=== PATIENT | female | born 1945 | race Caucasian/White ===

== ENCOUNTER 2017-11-21 08:05 | Day surgery (SDC) | payer OTHER, MEDICARE ==
[~2017-11-21] VITALS: Ht 162.6 cm; Wt 65.3 kg
[~2017-11-21 08:05] MED LIST: ALPR1TAB7 PO; ASPI81TA40 PO; CETI10CA5 PO; FURO40TA7 PO; LORA1TAB3 PO; PANT40TA25 PO; POTA10CA44 PO; RANO500T2 PO; RITUXAN IV; SIMV20TA6 PO; SODIUM CHLORIDE 0.9% 1000ML 1,000 ML IV ONE; levothyroxin PO; miralax PO
[2017-11-21 09:00] VITALS: BP 149/75
[2017-11-21] MEDS ORDERED: PROPOFOL 10 MG/ML 20ML VIAL IV ONE ×2 (09:51)
[2017-11-21 10:15] VITALS: BP 120/38
== END 2017-11-21 11:10 | disposition home or self-care (01) ==
LOC: ENDO 08:05 → DAH 08:05 → ENDO 11:10
PROVIDERS: ATTEND Internal Medicine
DX: D12.4 Benign neoplasm of descending colon (principal); D12.5 Benign neoplasm of sigmoid colon; K63.89 Other specified diseases of intestine; K62.89 Other specified diseases of anus and rectum; E03.9 Hypothyroidism, unspecified; E11.9 Type 2 diabetes mellitus without complications; K29.50 Unspecified chronic gastritis without bleeding; K31.89 Other diseases of stomach and duodenum; E78.5 Hyperlipidemia, unspecified; C18.7 Malignant neoplasm of sigmoid colon; I10 Essential (primary) hypertension; D64.9 Anemia, unspecified; Z79.82 Long term (current) use of aspirin; Z79.899 Other long term (current) drug therapy; Z90.710 Acquired absence of both cervix and uterus; Z98.890 Other specified postprocedural states; Z96.659 Presence of unspecified artificial knee joint; Z96.643 Presence of artificial hip joint, bilateral; Z88.0 Allergy status to penicillin; Z88.8 Allergy status to other drugs, medicaments and biological substances; Z85.038 Personal history of other malignant neoplasm of large intestine
CPT/HCPCS: 43239; 45380; 45385; 88305; 88312; 93005; A4606; J2704 ×2; J7030

== ENCOUNTER → 2018-03-30 | Outpatient (CLI) | payer OTHER, MEDICARE ==
[~2018-03-30] MED LIST changes: -SODIUM CHLORIDE 0.9% 1000ML 1,000 ML IV ONE
== END | disposition home or self-care (01) ==
LOC: RAH 07:53
PROVIDERS: ATTEND Family Medicine
DX: M47.892 Other spondylosis, cervical region (principal); M47.896 Other spondylosis, lumbar region; M48.061 Spinal stenosis, lumbar region without neurogenic claudication; M48.02 Spinal stenosis, cervical region; M50.30 Other cervical disc degeneration, unspecified cervical region; M51.36 Other intervertebral disc degeneration, lumbar region
CPT/HCPCS: 72141; 72148

== ENCOUNTER → 2018-11-28 | Outpatient (CLI) | payer OTHER, MEDICARE | END | disposition home or self-care (01) | LOC: SHCH 12:49 | PROVIDERS: ATTEND Internal Medicine Cardiovascular Disease | DX: I65.23 Occlusion and stenosis of bilateral carotid arteries (principal); I11.9 Hypertensive heart disease without heart failure; I25.5 Ischemic cardiomyopathy | CPT/HCPCS: 93306; 93880 ==

== ENCOUNTER 2019-08-21 06:48 | Day surgery (SDC) | payer OTHER, MEDICARE ==
[~2019-08-21] VITALS: Ht 162.6 cm; Wt 63.5 kg
[~2019-08-21 06:48] MED LIST changes: +BISACODYL; +CA C1TAB95 PO; +DICY20TA11 PO; +ERGO500014 PO; +ESOM40CA54 PO; +FLUT1AER IH; +ISOS30TA6 PO; +ONDA4TAB4 PO; -PANT40TA25 PO; +SIMV-43 PO; -SIMV20TA6 PO; +SODIUM CHLORIDE 0.9% 1000ML 1,000 ML IV ONE; +SUCR1TAB2 PO; -miralax PO
[2019-08-21 07:58] VITALS: BP 132/69
[2019-08-21] MEDS ORDERED: KCL10IV IV (08:38)
[2019-08-21] MEDS ORDERED: DICY20TA11 PO (08:38)
[2019-08-21] MEDS ORDERED: FLUT1AER IH (08:38)
[2019-08-21] MEDS ORDERED: ISOS30TA11 PO (08:38)
[2019-08-21] MEDS ORDERED: SIMV40TA59 PO (08:38)
[2019-08-21] MEDS ORDERED: ONDA22I IM (08:38)
[2019-08-21] MEDS ORDERED: ALPR1TAB7 PO (08:38)
[2019-08-21] MEDS ORDERED: LEVO100T12 PO (08:38)
[2019-08-21] MEDS ORDERED: AEC81 PO (08:38)
[2019-08-21] MEDS ORDERED: SUCR1TAB2 PO (08:38)
[2019-08-21] MEDS ORDERED: RANO500T2 PO (08:38)
[2019-08-21] MEDS ORDERED: RITU1010I INJ (08:38)
[2019-08-21] MEDS ORDERED: FURO40TA7 PO (08:38)
[2019-08-21] MEDS ORDERED: CETI5TAB12 PO (08:38)
[2019-08-21] MEDS ORDERED: ESOM40CA54 PO (08:38)
[2019-08-21] MEDS ORDERED: VIT D (08:38)
[2019-08-21] MEDS ORDERED: BISA5TAB12 PO (08:38)
[2019-08-21] MEDS ORDERED: CALC-909 PO (08:38)
[2019-08-21] MEDS ORDERED: LORA2ORA5 PO (08:38)
[2019-08-21] MEDS ORDERED: PROPOFOL 10 MG/ML 20ML VIAL IV ONE (09:03)
[2019-08-21 09:04] VITALS: BP 112/55
[2019-08-21 09:12] VITALS: BP 131/72
[2019-08-21 09:17] VITALS: BP 145/70
[2019-08-21 09:22] VITALS: BP 133/71
[2019-08-21 09:27] VITALS: BP 125/66
[2019-12-02] MEDS ORDERED: [UNRECOGNIZED DRUG - CODE] PO (04:16)
[2019-12-02] MEDS ORDERED: FOLI0.8T PO (04:16)
[2019-12-02] MEDS ORDERED: ALBU8.5H8 IH (04:16)
[2019-12-02] MEDS ORDERED: NTP TP (04:16)
[2019-12-02] MEDS ORDERED: LEVO100T12 PO (04:16)
[2019-12-02] MEDS ORDERED: HYDR-4068 PO (04:16)
[2019-12-02] MEDS ORDERED: LORA-192 PO (04:16)
[2019-12-02] MEDS ORDERED: BISA5TAB12 PO (04:16)
[2019-12-09] MEDS ORDERED: FURO40TA7 PO (14:22)
== END 2019-08-21 09:40 | disposition home or self-care (01) ==
LOC: DAH 06:48 → ENDO 06:48 → MERGE 06:48 → ENDO 09:40
PROVIDERS: ATTEND Internal Medicine Gastroenterology
DX: R10.13 Epigastric pain (principal); K29.50 Unspecified chronic gastritis without bleeding; K21.9 Gastro-esophageal reflux disease without esophagitis; M06.9 Rheumatoid arthritis, unspecified; E03.9 Hypothyroidism, unspecified; I10 Essential (primary) hypertension; E11.9 Type 2 diabetes mellitus without complications; Z88.0 Allergy status to penicillin; Z88.8 Allergy status to other drugs, medicaments and biological substances; Z85.038 Personal history of other malignant neoplasm of large intestine; Z86.010 Personal history of colon polyps; Z90.710 Acquired absence of both cervix and uterus; Z98.890 Other specified postprocedural states; Z96.643 Presence of artificial hip joint, bilateral; Z96.659 Presence of unspecified artificial knee joint; Z98.41 Cataract extraction status, right eye; Z98.42 Cataract extraction status, left eye; Z79.82 Long term (current) use of aspirin; Z79.899 Other long term (current) drug therapy; Z82.5 Family history of asthma and other chronic lower respiratory diseases
CPT/HCPCS: 43239; 88305; 88342; A4215; A4221; A4222; A4223; A4606; A4620; A4663; J2704; J7030

== ENCOUNTER 2019-12-02 00:53 | Inpatient (IN) | payer OTHER, MEDICARE ==
[2019-12-02] VITALS (10 sets, daily range): BP systolic 102–148; BP diastolic 50–67; PULSE 61–90; RESP 16–18; TEMP 96.6–100.4
[~2019-12-02] VITALS: Ht 167.6 cm; Wt 56.6 kg
[2019-12-02] MEDS: SODIUM CHLORIDE 0.9% 1000ML 1,000 ML IV SCH ×2 (04:56→17:01)
[2019-12-02] MEDS: AZITHROMYCIN 500MG+NS 250ML 250 ML IV SCH (04:58)
[2019-12-02] MEDS ORDERED: IPRATROPIUM/ALBUTEROL SULFATE 3 ML SOLUTION IH SCH (06:00)
--- NOTE | 2019-12-02 08:00 | NUR ---
AM ASSESSMENT. HOME MEDICATIONS PENDING TO BE RECONCILED
[2019-12-02] MEDS ORDERED: ALBUTEROL INHALER 90MCG/INH IH SCH (10:00)
[2019-12-02] MEDS ORDERED: RITUXIMAB INJ SCH (12:30)
[2019-12-02] MEDS ORDERED: BISACODYL 5 MG TABLET.DR PO PRN (12:30)
[2019-12-02] MEDS ORDERED: LORAZEPAM 1 MG TABLET PO PRN (12:30)
--- NOTE | 2019-12-02 12:30 | NUR ---
DR. POWELL IN TO SEE PT. UNHAPPY DUE TO A RESP TX. THAT WAS BEING FOLLOWED PER HOSP. PROTOCOL
--- NOTE | 2019-12-02 14:23 | NUR ---
CM Note: CM called granddasamuel Mccabe on facesheet left voicemail, pending call back. Obtained info from med record at this time. Pt is independent prior to admission, lives at home w/granddaughter. Has a cane. DC plan to home once stable. CM to cont to follow up. Addendum: 12/02/19 at 1426 by BERENICE DAY LVN CM Amended: Links added.
[2019-12-02] MEDS: SUCRALFATE 1 GM TABLET PO SCH ×3 (14:25→21:00)
[2019-12-02] MEDS: HYDROCODONE/ACETAMINOPHEN 10/325 MG TAB PO PRN ×2 (14:25→22:45)
--- NOTE | 2019-12-02 14:30 | NUR ---
MEDICATED FOR PAIN C/O OF PAIN TO HANDS . FINGERS WITH SEVERE DEFORMITIES SECONDARY TO ARTHRITIS
--- NOTE | 2019-12-02 16:31 | NUR ---
TALKED TO DR. POWELL RE COVIC-19 TESTING AND STATES THERE IS NO NEED TO DO THAT, STATES HE SEES HER IN THE OFFICE EVERY WEEK.
[2019-12-02] MEDS: CEFTRIAXONE SODIUM 1 GM IVP SCH (16:54)
[2019-12-02] MEDS ORDERED: ALBUTEROL SULFATE 0.083% 2.5 MG/3 ML INH IH SCH (18:00)
[2019-12-02] MEDS: IPRATROPIUM/ALBUTEROL SULFATE 3 ML SOLUTION IH SCH ×2 (18:30→21:17)
[2019-12-02] MEDS: BUDESONIDE 0.5 MG/2 ML INH IH SCH (18:42)
[2019-12-02] MEDS: ALPRAZOLAM 1 MG TAB PO SCH (21:00)
[2019-12-02] MEDS: SIMVASTATIN 20 MG TABLET PO SCH (21:00)
[2019-12-02] MEDS: RANOLAZINE 500 MG TAB.SR.12H PO SCH (21:00)
[2019-12-02] MEDS: POTASSIUM CHLORIDE 20 MEQ ERTAB PO SCH (21:00)
[2019-12-03] VITALS (12 sets, daily range): BP systolic 93–121; BP diastolic 44–70; PULSE 63–84; RESP 18; TEMP 97.4–99.2
[2019-12-03] MEDS: ALPRAZOLAM 1 MG TAB PO SCH ×2 (00:09→20:28)
--- NOTE | 2019-12-03 00:12 | NUR ---
ULTRASOUND Abdominal ultrasound done per tech. Addendum: 12/03/19 at 0012 by ML MAXWELL RN RN Amended: Links added.
[2019-12-03] MEDS: SODIUM CHLORIDE 0.9% 1000ML 1,000 ML IV SCH ×3 (02:40→23:42)
[2019-12-03] MEDS: IPRATROPIUM/ALBUTEROL SULFATE 3 ML SOLUTION IH SCH ×3 (02:55→10:45)
[2019-12-03] MEDS: AZITHROMYCIN 500MG+NS 250ML 250 ML IV SCH (05:05)
[2019-12-03] MEDS: LEVOTHYROXINE 100 MCG TABLET PO SCH (06:32)
[2019-12-03] MEDS: BUDESONIDE 0.5 MG/2 ML INH IH SCH (06:38)
--- NOTE | 2019-12-03 08:53 | NUR ---
CHART CHECK COMPLETED. Pt IS A 74 Y.O. FEMALE ADMITTED SECONDARY TO HOSPITAL ACQUIRED PNEUMONIA. Pt HAS A PAST MEDICAL HISTORY SIGNIFICANT FOR COLON CARCINOMA WITH RESECTION, RA, COPD, CAD, ANEMIA, PNA/ASTHMA, PRINZMETAL ANGIA. NO COMPLAINS OF DYSPHAGIA AT THIS TIME. PLEASE REQUEST SPEECH/SWALLOW EVALUATION IF PT PRESENTS WITH S/S OF ASPIRATION SUCH COUGH RESPONSE, WET VOCAL QUALITY, OR THROAT CLEAR. Addendum: 12/03/19 at 0908 by RADHA LANDAVERDE, [facility] Amended: Links added.
[2019-12-03] MEDS: POTASSIUM CHLORIDE 20 MEQ ERTAB PO SCH ×2 (09:00→20:28)
[2019-12-03] MEDS: ASPIRIN 81 MG EC TAB PO SCH (09:03)
[2019-12-03] MEDS: FOLIC ACID 1 MG TABLET PO SCH (09:03)
[2019-12-03] MEDS: RANOLAZINE 500 MG TAB.SR.12H PO SCH ×2 (09:03→20:28)
[2019-12-03] MEDS: HYDROCODONE/ACETAMINOPHEN 10/325 MG TAB PO PRN ×2 (09:03→21:42)
[2019-12-03] MEDS: SUCRALFATE 1 GM TABLET PO SCH ×4 (09:03→20:28)
[2019-12-03] MEDS: ISOSORBIDE MONO 30MG TAB SR PO SCH (09:03)
[2019-12-03] MEDS: PANTOPRAZOLE SODIUM 40 MG TABLET.DR PO SCH (09:04)
[2019-12-03] MEDS: DILTIAZEM HCL 120 MG CAP.SR.24H PO SCH (09:04)
[2019-12-03] MEDS ORDERED: POTASSIUM CHLORIDE 10% ELIXIR 20 MEQ/15 ML UDCUP PO PRN (11:30)
[2019-12-03] MEDS: LIDOCAINE HCL-MPF 1% 2ML VIAL IV PRN ×2 (12:29→17:45)
[2019-12-03] MEDS: POTASSIUM CHLORIDE 20MEQ/100ML 100 ML IV PRN ×2 (12:29→17:44)
[2019-12-03] MEDS: CEFTRIAXONE SODIUM 1 GM IVP SCH (15:25)
[2019-12-03] MEDS: POTASSIUM CHLORIDE 20 MEQ ERTAB PO PRN ×2 (15:25→17:45)
--- NOTE | 2019-12-03 16:25 | NUR ---
T/C PLACED TO GRAND DAUGHTER, ANDRE T/C PLACED TO GRAND DAUGHTER ANDRE GRIFFITHS, STATES CONCERNED ABOUT TRANSFERRING HER GRAND MOTHER TO SECOND FLOOR, EXPLAINED TO HER THIS IS PART OF THE PROCESS WE TAKE AND THAT DR. POWELL WAS CALLED AND AGREE WITH TRANSFER. HAD OTHER QUESTIONS REGARDING TESTING, PER GRAND DAUGHTER STATES SHE IS A NURSE. SHE ALSO HAS REQUESTED TO INFORMED HER OF TEST RESULTS. IN FORMED HER WILL NEED TO TALK TO HER GRAND MOTHER AND ASK PERMISSION TO GIVE THAT INFORMATION.
--- NOTE | 2019-12-03 16:45 | NUR ---
CHARGE NURSE IN ROOM/ PERMISSION TO GIVE TEST RESULTS TO GRAND DAUGHTER CHRISTOPHER BRADLEY CHARGE NURSE AND MYSELF DESTIN BRADLEY INTERIM MATERNITY NURSE, HERE TO SPEAK WITH PATIENT ABOUT MOVING TO ANOTHER FLOOR. ALSO INFORMED HER THAT HER GRAND DAUGHTER WOULD LIKE TO KNOW THE COVID TEST RESULTS. PATIENT SAID YES AND GIVES PERMISSION TO INFORM HER GRAND DAUGHTER, ANDRE GRIFFITHS ABOUT RESULTS.
--- NOTE | 2019-12-03 17:40 | NUR ---
TRANSFER PATIENT TRANSFERRED TO ROOM 228 AT THIS TIME. PATIENT IS IN STABLE CONDITION, ON 2L NC. SHE IS AAOX4. TELEMETRY MONITORING WAS STARTED. IV FLUIDS AND IV POTASSIUM RUNNING THROUGH PIV AT THIS TIME. PATIENT STATES SHE IS COMFORTABLE AND IN NO APPARENT DISTRESS.
[2019-12-03] MEDS: CETIRIZINE HCL 5 MG TABLET PO SCH (20:28)
[2019-12-03] MEDS: SIMVASTATIN 20 MG TABLET PO SCH (20:28)
[2019-12-04] VITALS (8 sets, daily range): BP systolic 114–132; BP diastolic 60–74; PULSE 64–80; RESP 18–20; TEMP 97.6–98.5
[2019-12-04] MEDS: AZITHROMYCIN 500MG+NS 250ML 250 ML IV SCH (05:04)
[2019-12-04] MEDS: SODIUM CHLORIDE 0.9% 1000ML 1,000 ML IV SCH ×2 (06:15→16:15)
[2019-12-04] MEDS: LEVOTHYROXINE 100 MCG TABLET PO SCH (06:43)
[2019-12-04] MEDS: RANOLAZINE 500 MG TAB.SR.12H PO SCH ×2 (08:42→20:03)
[2019-12-04] MEDS: PANTOPRAZOLE SODIUM 40 MG TABLET.DR PO SCH (08:43)
[2019-12-04] MEDS: FOLIC ACID 1 MG TABLET PO SCH (08:43)
[2019-12-04] MEDS: SUCRALFATE 1 GM TABLET PO SCH ×4 (08:43→20:03)
[2019-12-04] MEDS: POTASSIUM CHLORIDE 20 MEQ ERTAB PO SCH ×2 (08:43→20:04)
[2019-12-04] MEDS: DILTIAZEM HCL 120 MG CAP.SR.24H PO SCH (08:43)
[2019-12-04] MEDS: ISOSORBIDE MONO 30MG TAB SR PO SCH (08:44)
[2019-12-04] MEDS: ASPIRIN 81 MG EC TAB PO SCH (08:44)
[2019-12-04] MEDS: METHYLPREDNISOLONE SOD SUCC 40MG/ML 1ML IVP SCH (12:40)
[2019-12-04] MEDS: ENOXAPARIN SODIUM 40 MG/0.4 ML SYRINGE SQ SCH (12:40)
[2019-12-04] MEDS ORDERED: ALBUTEROL INHALER 90MCG/INH IH PRN (13:30)
[2019-12-04] MEDS: CEFEPIME HCL 1 GM VIAL IVP SCH ×2 (14:00→21:15)
[2019-12-04] MEDS: HYDROCODONE/ACETAMINOPHEN 5/325 MG TAB PO PRN (18:08)
[2019-12-04] MEDS: CETIRIZINE HCL 5 MG TABLET PO SCH (20:03)
[2019-12-04] MEDS: SIMVASTATIN 20 MG TABLET PO SCH (20:03)
[2019-12-04] MEDS: ALPRAZOLAM 1 MG TAB PO SCH (20:03)
[2019-12-05] VITALS (8 sets, daily range): BP systolic 130–149; BP diastolic 54–79; PULSE 58–86; RESP 18–20; TEMP 97.2–98.6
[2019-12-05] MEDS: AZITHROMYCIN 500MG+NS 250ML 250 ML IV SCH (04:42)
[2019-12-05] MEDS: CEFEPIME HCL 1 GM VIAL IVP SCH ×3 (05:54→22:10)
[2019-12-05] MEDS: LEVOTHYROXINE 100 MCG TABLET PO SCH (05:58)
[2019-12-05] MEDS: ASPIRIN 81 MG EC TAB PO SCH (07:53)
[2019-12-05] MEDS: ISOSORBIDE MONO 30MG TAB SR PO SCH ×2 (07:53→09:00)
[2019-12-05] MEDS: PANTOPRAZOLE SODIUM 40 MG TABLET.DR PO SCH (07:53)
[2019-12-05] MEDS: SUCRALFATE 1 GM TABLET PO SCH ×4 (07:53→22:09)
[2019-12-05] MEDS: RANOLAZINE 500 MG TAB.SR.12H PO SCH ×2 (07:53→22:09)
[2019-12-05] MEDS: POTASSIUM CHLORIDE 20 MEQ ERTAB PO SCH ×2 (07:53→22:10)
[2019-12-05] MEDS: FOLIC ACID 1 MG TABLET PO SCH (07:53)
[2019-12-05] MEDS: HYDROCODONE/ACETAMINOPHEN 10/325 MG TAB PO PRN (07:54)
[2019-12-05] MEDS: DILTIAZEM HCL 120 MG CAP.SR.24H PO SCH (07:54)
[2019-12-05] MEDS: METHYLPREDNISOLONE SOD SUCC 40MG/ML 1ML IVP SCH (07:54)
[2019-12-05] MEDS: ENOXAPARIN SODIUM 40 MG/0.4 ML SYRINGE SQ SCH (07:56)
--- NOTE | 2019-12-05 15:41 | NUR ---
Spoke with DR. Wisdom made aware of negative covid results. new order transfer to medical floor, he will resume as primary
--- NOTE | 2019-12-05 16:15 | NUR ---
patient reports feeling short of breath at rest, unable to catch her breath. O2 sat 94% with O2 at 2.5LPM via NC. patient reports she is not receiving her lasix home medication, reviewed home medication noted lasix 40mg po BID on hold, noted patient has bilateral edema to lower extremities. Spoke with Dr. Wisdom new order lasix 40 mg IV bid
[2019-12-05] MEDS: FUROSEMIDE 10 MG/ML 4ML VIAL IV SCH (16:30)
[2019-12-05] MEDS ORDERED: SODIUM CHLORIDE 0.9% 0 ML IV ONE (22:06)
[2019-12-05] MEDS: ALPRAZOLAM 1 MG TAB PO SCH (22:09)
[2019-12-05] MEDS: CETIRIZINE HCL 5 MG TABLET PO SCH (22:09)
[2019-12-05] MEDS: SIMVASTATIN 20 MG TABLET PO SCH (22:09)
[2019-12-06] VITALS (10 sets, daily range): BP systolic 112–149; BP diastolic 50–69; PULSE 57–72; RESP 17–20; TEMP 97.5–98
[2019-12-06] MEDS: FUROSEMIDE 10 MG/ML 4ML VIAL IV SCH ×2 (04:18→19:27)
[2019-12-06] MEDS: AZITHROMYCIN 500MG+NS 250ML 250 ML IV SCH (04:18)
--- NOTE | 2019-12-06 06:33 | NUR ---
PM SHIFT NOTE RECEIVED PT AOX3 IN BED. MEDIPORT TO RIGHT CHEST AT [facility] DRESSING CDI. 02 VIA NC 2.5 L, LUNGS CRACKLES RLL, LEFT DIMINISHED. UP AD DELANEY TO RESTROOM URINATING WITHOUT DIFFICULTY LARGE MARGARITA CLEAR YELLOW URINE. DENIES ANY NEEDS OR CONCERNS. NO ACUTE EVENTS THIS SHIFT.
[2019-12-06] MEDS: LEVOTHYROXINE 100 MCG TABLET PO SCH (06:39)
[2019-12-06] MEDS: CEFEPIME HCL 1 GM VIAL IVP SCH ×3 (06:39→21:13)
[2019-12-06] MEDS: HYDROCODONE/ACETAMINOPHEN 10/325 MG TAB PO PRN ×2 (06:55→21:13)
[2019-12-06] MEDS: ENOXAPARIN SODIUM 40 MG/0.4 ML SYRINGE SQ SCH (09:47)
[2019-12-06] MEDS: ISOSORBIDE MONO 30MG TAB SR PO SCH (09:48)
[2019-12-06] MEDS: FOLIC ACID 1 MG TABLET PO SCH (09:49)
[2019-12-06] MEDS: DILTIAZEM HCL 120 MG CAP.SR.24H PO SCH (09:50)
[2019-12-06] MEDS: RANOLAZINE 500 MG TAB.SR.12H PO SCH ×2 (09:50→21:00)
[2019-12-06] MEDS: ASPIRIN 81 MG EC TAB PO SCH (09:51)
[2019-12-06] MEDS: PANTOPRAZOLE SODIUM 40 MG TABLET.DR PO SCH (09:51)
[2019-12-06] MEDS: METHYLPREDNISOLONE SOD SUCC 40MG/ML 1ML IVP SCH (09:51)
[2019-12-06] MEDS: SUCRALFATE 1 GM TABLET PO SCH ×4 (09:51→21:12)
[2019-12-06] MEDS: POTASSIUM CHLORIDE 20 MEQ ERTAB PO SCH ×2 (09:51→21:13)
--- NOTE | 2019-12-06 14:41 | NUR ---
REPORT GIVEN TO NATALI BRADLEY
--- NOTE | 2019-12-06 15:55 | NUR ---
RECEIVED PT FORM COVID UNIT AAOX3, NO DISTRESS, IV PATENT NO SWELLING NOR TENDERNESS. AAOX3.
[2019-12-06] MEDS: ALPRAZOLAM 1 MG TAB PO SCH (21:12)
[2019-12-06] MEDS: CETIRIZINE HCL 5 MG TABLET PO SCH (21:12)
[2019-12-06] MEDS: SIMVASTATIN 20 MG TABLET PO SCH (21:12)
--- NOTE | 2019-12-06 21:20 | NUR ---
C/O PAIN ADMINISTERED PAIN PER MAR BASED ON PAIN SCALE OF 5 FROM 0-10. PT C/O GENERAL BODY PAIN. WILL RECHECK AND MONITOR EFFECTIVENESS.
--- NOTE | 2019-12-06 21:38 | NUR ---
LOUANN GALDAMEZ SPOKE WITH RENAY ABOUT ORDER PLACED FOR O2 EXTENSION FOR NC. HE SAID HE WOULD BRING ONE UP TO THE PT.
--- NOTE | 2019-12-06 22:00 | NUR ---
O2 TUBING EXTENSION BROUGHT BY RT. CONNECTED NC @ 2 LPM. PT TAYLOR WELL, NO DISTRESS NOTED.
[2019-12-07 04:28] VITALS: BP 133/71; PULSE 50; RESP 18; TEMP 97.4
[2019-12-07] MEDS: FUROSEMIDE 10 MG/ML 4ML VIAL IV SCH ×2 (04:34→17:44)
[2019-12-07] MEDS: AZITHROMYCIN 500MG+NS 250ML 250 ML IV SCH (04:34)
[2019-12-07] MEDS: LEVOTHYROXINE 100 MCG TABLET PO SCH (06:04)
[2019-12-07] MEDS: HYDROCODONE/ACETAMINOPHEN 5/325 MG TAB PO PRN ×2 (06:04→14:34)
[2019-12-07] MEDS: CEFEPIME HCL 1 GM VIAL IVP SCH ×3 (06:05→21:48)
[2019-12-07 09:00] VITALS: BP 153/77; PULSE 65; RESP 19; TEMP 97.7
[2019-12-07] MEDS: RANOLAZINE 500 MG TAB.SR.12H PO SCH ×2 (09:35→21:48)
[2019-12-07] MEDS: SUCRALFATE 1 GM TABLET PO SCH ×4 (09:35→21:48)
[2019-12-07] MEDS: FOLIC ACID 1 MG TABLET PO SCH (09:35)
[2019-12-07] MEDS: PANTOPRAZOLE SODIUM 40 MG TABLET.DR PO SCH (09:36)
[2019-12-07] MEDS: ASPIRIN 81 MG EC TAB PO SCH (09:36)
[2019-12-07] MEDS: ISOSORBIDE MONO 30MG TAB SR PO SCH (09:36)
[2019-12-07] MEDS: DILTIAZEM HCL 120 MG CAP.SR.24H PO SCH (09:36)
[2019-12-07] MEDS: METHYLPREDNISOLONE SOD SUCC 40MG/ML 1ML IVP SCH (09:37)
[2019-12-07] MEDS: POTASSIUM CHLORIDE 20 MEQ ERTAB PO SCH ×2 (09:37→21:49)
[2019-12-07] MEDS: ENOXAPARIN SODIUM 40 MG/0.4 ML SYRINGE SQ SCH (09:43)
[2019-12-07 11:15] VITALS: PULSE 64; RESP 18
[2019-12-07 11:40] VITALS: BP 118/70; PULSE 65; RESP 18; TEMP 97.5
[2019-12-07 16:58] VITALS: BP 121/64; PULSE 54; RESP 18; TEMP 97.7
[2019-12-07 20:58] VITALS: BP 136/70; PULSE 53; RESP 19; TEMP 97.5
[2019-12-07] MEDS: CETIRIZINE HCL 5 MG TABLET PO SCH (21:48)
[2019-12-07] MEDS: SIMVASTATIN 20 MG TABLET PO SCH (21:48)
[2019-12-07] MEDS: ALPRAZOLAM 1 MG TAB PO SCH (21:48)
[2019-12-08] VITALS (8 sets, daily range): BP systolic 61–147; BP diastolic 59–69; PULSE 47–77; RESP 18–20; TEMP 96.1–98.5
[2019-12-08] MEDS: FUROSEMIDE 10 MG/ML 4ML VIAL IV SCH ×2 (04:45→18:39)
[2019-12-08] MEDS: AZITHROMYCIN 500MG+NS 250ML 250 ML IV SCH (04:46)
[2019-12-08] MEDS: HYDROCODONE/ACETAMINOPHEN 10/325 MG TAB PO PRN ×2 (04:46→18:36)
[2019-12-08] MEDS: CEFEPIME HCL 1 GM VIAL IVP SCH ×3 (04:59→21:18)
[2019-12-08] MEDS: LEVOTHYROXINE 100 MCG TABLET PO SCH (06:21)
--- NOTE | 2019-12-08 07:20 | NUR ---
DR. POWELL IN TO SEE PT. WANTS HER TO BE EVALUATED FOR HOME O2
[2019-12-08] MEDS ORDERED: BENZONATATE 100 MG CAPSULE PO PRN (07:45)
--- NOTE | 2019-12-08 08:00 | NUR ---
assessment, states today is first day she can actually say she feels better.
[2019-12-08] MEDS: PANTOPRAZOLE SODIUM 40 MG TABLET.DR PO SCH (10:53)
[2019-12-08] MEDS: FOLIC ACID 1 MG TABLET PO SCH (10:53)
[2019-12-08] MEDS: RANOLAZINE 500 MG TAB.SR.12H PO SCH ×2 (10:53→21:18)
[2019-12-08] MEDS: POTASSIUM CHLORIDE 20 MEQ ERTAB PO SCH ×2 (10:53→21:18)
[2019-12-08] MEDS: ASPIRIN 81 MG EC TAB PO SCH (10:53)
[2019-12-08] MEDS: ISOSORBIDE MONO 30MG TAB SR PO SCH (10:53)
[2019-12-08] MEDS: METHYLPREDNISOLONE SOD SUCC 40MG/ML 1ML IVP SCH (10:54)
[2019-12-08] MEDS: DILTIAZEM HCL 120 MG CAP.SR.24H PO SCH (10:54)
[2019-12-08] MEDS: ENOXAPARIN SODIUM 40 MG/0.4 ML SYRINGE SQ SCH (11:09)
[2019-12-08] MEDS: SUCRALFATE 1 GM TABLET PO SCH ×4 (11:14→21:18)
[2019-12-08] MEDS: CETIRIZINE HCL 5 MG TABLET PO SCH (21:18)
[2019-12-08] MEDS: ALPRAZOLAM 1 MG TAB PO SCH (21:18)
[2019-12-08] MEDS: SIMVASTATIN 20 MG TABLET PO SCH (21:18)
[2019-12-09 00:53] VITALS: BP_SYST 124; BP_SYST 125; BP_DIAS 59; BP_DIAS 66; PULSE 52; RESP 19; TEMP 98.2
[2019-12-09] MEDS: AZITHROMYCIN 500MG+NS 250ML 250 ML IV SCH (05:16)
[2019-12-09] MEDS: CEFEPIME HCL 1 GM VIAL IVP SCH ×2 (05:16→13:18)
[2019-12-09] MEDS: FUROSEMIDE 10 MG/ML 4ML VIAL IV SCH (05:17)
[2019-12-09 05:32] VITALS: BP 157/67; PULSE 50; RESP 20; TEMP 98.2
[2019-12-09] MEDS: LEVOTHYROXINE 100 MCG TABLET PO SCH (06:22)
[2019-12-09 07:30] VITALS: BP 149/59; PULSE 48; RESP 17; TEMP 97.7
[2019-12-09] MEDS: METHYLPREDNISOLONE SOD SUCC 40MG/ML 1ML IVP SCH (08:40)
[2019-12-09] MEDS: ENOXAPARIN SODIUM 40 MG/0.4 ML SYRINGE SQ SCH (08:40)
[2019-12-09] MEDS: FOLIC ACID 1 MG TABLET PO SCH (08:40)
[2019-12-09] MEDS: SUCRALFATE 1 GM TABLET PO SCH ×2 (08:40→13:18)
[2019-12-09] MEDS: ASPIRIN 81 MG EC TAB PO SCH (08:40)
[2019-12-09] MEDS: DILTIAZEM HCL 120 MG CAP.SR.24H PO SCH (08:41)
[2019-12-09] MEDS: ISOSORBIDE MONO 30MG TAB SR PO SCH (08:41)
[2019-12-09] MEDS: PANTOPRAZOLE SODIUM 40 MG TABLET.DR PO SCH (08:41)
[2019-12-09] MEDS: POTASSIUM CHLORIDE 20 MEQ ERTAB PO SCH (08:42)
[2019-12-09] MEDS: RANOLAZINE 500 MG TAB.SR.12H PO SCH (09:27)
[2019-12-09 11:00] VITALS: BP 131/74; PULSE 78; RESP 18; TEMP 97.5
[2019-12-09] MEDS: HYDROCODONE/ACETAMINOPHEN 10/325 MG TAB PO PRN (11:38)
[2019-12-09 12:00] VITALS: PULSE 68; RESP 20
[2019-12-09 13:00] VITALS: PULSE 79; PULSE 98; RESP 18; RESP 22
--- NOTE | 2019-12-09 14:33 | NUR ---
Patient very weak and unable to complete 6min walk. Walked for approx. 4mins. Addendum: 12/09/19 at 1434 by TRISH GALDAMEZ Amended: Links added.
[2019-12-09] MEDS ORDERED: HEPARIN SODIUM 5000UNIT/ML 1ML VIAL ONE (15:05)
--- NOTE | 2019-12-09 15:12 | NUR ---
INSTRUCTIONS DISCHARGE INSTRUCTIONS GIVEN TO PATIENT USING TEACH BACK. NEW PRESCRIPTION SENT ELECTRONICALLY TO PATIENT'S PREFERRED PHARMACY. ALL INFORMATION AND MD INSTRUCTIONS PRINTED AND PLACED IN DISCHARGE PACKET. F/U APPOINTMENT MADE WITH DR. POWELL. PORT-O-CATH REMOVED AFTER FLUSHING WITH 300 UNITS OF HEPARIN PER PROTOCOL. NO QUESTIONS OR CONCERNS VOICED. PENDING RIDE HOME.
[2019-12-09] MEDS ORDERED: HEPARIN SODIUM/PF 100UNIT/ML 5ML SYRINGE IV SCH (15:15)
== END 2019-12-09 15:55 | disposition home or self-care (01) | DRG 193 ==
LOC: 3BH 02:59 → 2DH 12-03 18:29 → 3CH 12-06 15:48
PROVIDERS: ADMIT Internal Medicine; ATTEND Internal Medicine
DX: J18.9 Pneumonia, unspecified organism (principal); J96.01 Acute respiratory failure with hypoxia; C18.9 Malignant neoplasm of colon, unspecified; J44.0 Chronic obstructive pulmonary disease with (acute) lower respiratory infection; Y95 Nosocomial condition; D64.9 Anemia, unspecified; Z96.659 Presence of unspecified artificial knee joint; I25.10 Atherosclerotic heart disease of native coronary artery without angina pectoris; Z20.828 Contact with and (suspected) exposure to other viral communicable diseases; M06.9 Rheumatoid arthritis, unspecified; I73.00 Raynaud's syndrome without gangrene; I10 Essential (primary) hypertension; Z96.649 Presence of unspecified artificial hip joint; Z90.710 Acquired absence of both cervix and uterus; Z87.01 Personal history of pneumonia (recurrent); Z79.899 Other long term (current) drug therapy; Z88.1 Allergy status to other antibiotic agents; Z88.5 Allergy status to narcotic agent; Z88.0 Allergy status to penicillin

== ENCOUNTER → 2020-01-15 | Outpatient (CLI) | payer OTHER, MEDICARE ==
[~2020-01-15] MED LIST changes: +AEC81 PO; +ALBU8.5H8 IH; -ASPI81TA40 PO; +BISA5TAB12 PO; -BISACODYL; -CA C1TAB95 PO; -DICY20TA11 PO; -ERGO500014 PO; +FOLI0.8T PO; +HYDR-4068 PO; +LEVO100T12 PO; +LORA-192 PO; -LORA1TAB3 PO; +NTP TP; -ONDA4TAB4 PO; +RITU1010I INJ; -RITUXAN IV; -SODIUM CHLORIDE 0.9% 1000ML 1,000 ML IV ONE; +[UNRECOGNIZED DRUG - CODE] PO; -levothyroxin PO
== END | disposition home or self-care (01) ==
LOC: SHCH 15:24
PROVIDERS: ATTEND Internal Medicine Cardiovascular Disease
DX: R01.1 Cardiac murmur, unspecified (principal)
CPT/HCPCS: 93306; 93356

== ENCOUNTER → 2020-01-27 | Outpatient (CLI) | payer OTHER, MEDICARE | END | disposition home or self-care (01) | LOC: SHCH 10:18 | PROVIDERS: ATTEND Internal Medicine Cardiovascular Disease | DX: I70.203 Unspecified atherosclerosis of native arteries of extremities, bilateral legs (principal); R22.43 Localized swelling, mass and lump, lower limb, bilateral; M79.605 Pain in left leg; M79.604 Pain in right leg | CPT/HCPCS: 93970 ==

== ENCOUNTER 2020-06-16 08:54 | Day surgery (SDC) | payer OTHER, MEDICARE ==
[2020-06-16] VITALS (19 sets, daily range): BP systolic 144–172; BP diastolic 71–87
[~2020-06-16] VITALS: Ht 162.6 cm; Wt 57.2 kg
[~2020-06-16 08:54] MED LIST changes: +SODIUM CHLORIDE 0.9% 1000ML 1,000 ML IV ONE
[2020-06-16] MEDS ORDERED: INDOMETHACIN 50 MG SUPP.RECT RC SCH (10:00)
[2020-06-16] MEDS ORDERED: PROPOFOL 10 MG/ML 20ML VIAL IV ONE (10:22)
[2020-06-16] MEDS ORDERED: IOHEXOL-350 50ML VIAL IV ONE (10:33)
== END 2020-06-16 13:18 | disposition home or self-care (01) ==
LOC: ENDO 08:54 → DAH 08:54 → ENDO 13:18
PROVIDERS: ATTEND Internal Medicine Gastroenterology
DX: R10.11 Right upper quadrant pain (principal); K83.1 Obstruction of bile duct; K83.8 Other specified diseases of biliary tract; R93.2 Abnormal findings on diagnostic imaging of liver and biliary tract; I10 Essential (primary) hypertension; E78.5 Hyperlipidemia, unspecified; R63.4 Abnormal weight loss; C18.7 Malignant neoplasm of sigmoid colon; K59.01 Slow transit constipation; K21.9 Gastro-esophageal reflux disease without esophagitis; E11.9 Type 2 diabetes mellitus without complications; M06.9 Rheumatoid arthritis, unspecified; E03.9 Hypothyroidism, unspecified; Z90.49 Acquired absence of other specified parts of digestive tract; Z90.710 Acquired absence of both cervix and uterus; Z96.643 Presence of artificial hip joint, bilateral; Z79.899 Other long term (current) drug therapy; Z88.0 Allergy status to penicillin; Z88.1 Allergy status to other antibiotic agents; Z20.828 Contact with and (suspected) exposure to other viral communicable diseases
CPT/HCPCS: 43274; 74328; 88366; A4215; A4221; A4222; A4223; A4606; A4620; A4649; A4657; A4663; C1769; C2625; C9803; J7030; Q9967; U0003; 74330; J2704

== ENCOUNTER 2020-07-14 07:53 | Day surgery (SDC) | payer OTHER, MEDICARE ==
[~2020-07-14] VITALS: Ht 162.6 cm; Wt 59.0 kg
[2020-07-14] VITALS (18 sets, daily range): BP systolic 122–162; BP diastolic 60–74
[~2020-07-14 07:53] MED LIST changes: -ISOS30TA6 PO; +ISOS30TA92 PO
[2020-07-14] MEDS ORDERED: INDOMETHACIN 50 MG SUPP.RECT RC SCH (08:30)
[2020-07-14] MEDS ORDERED: IOHEXOL-350 50ML VIAL IV ONE (09:28)
[2020-07-14] MEDS ORDERED: FENTANYL CITRATE PF 50 MCG/1 ML 2ML VIAL ONE (09:42)
[2020-07-14] MEDS ORDERED: LIDOCAINE PF 2% 5ML ABBOJECT ONE (09:42)
[2020-07-14] MEDS ORDERED: PROPOFOL 10 MG/ML 20ML VIAL IV ONE (09:42)
[2020-07-14] MEDS ORDERED: SUCCINYLCHOLINE CHLORIDE 20 MG/ML 10 ML VIAL ONE (09:42)
== END 2020-07-14 12:45 | disposition home or self-care (01) ==
LOC: ENDO 07:53 → DAH 07:53 → ENDO 12:45
PROVIDERS: ATTEND Internal Medicine Gastroenterology
DX: Z46.59 Encounter for fitting and adjustment of other gastrointestinal appliance and device (principal); Z20.822 Contact with and (suspected) exposure to COVID-19; K83.1 Obstruction of bile duct; K83.8 Other specified diseases of biliary tract; I10 Essential (primary) hypertension; J44.9 Chronic obstructive pulmonary disease, unspecified; E78.5 Hyperlipidemia, unspecified; I25.2 Old myocardial infarction; K21.9 Gastro-esophageal reflux disease without esophagitis; M06.9 Rheumatoid arthritis, unspecified; E11.9 Type 2 diabetes mellitus without complications; E03.9 Hypothyroidism, unspecified; R63.4 Abnormal weight loss; K59.01 Slow transit constipation; Z88.0 Allergy status to penicillin; Z90.710 Acquired absence of both cervix and uterus; Z98.890 Other specified postprocedural states; Z85.038 Personal history of other malignant neoplasm of large intestine; Z79.82 Long term (current) use of aspirin; Z79.890 Hormone replacement therapy; Z79.899 Other long term (current) drug therapy; Z98.42 Cataract extraction status, left eye; Z98.41 Cataract extraction status, right eye; Z88.8 Allergy status to other drugs, medicaments and biological substances; Z68.21 Body mass index [BMI] 21.0-21.9, adult
CPT/HCPCS: 43262; 43264; 43275; 74328; 88112; 88173; 88305; 88366; A4215 ×2; A4216; A4221; A4222; A4223; A4606; A4649; A4657 ×2; A4663; C1769; C1773; C9803; J0330; J2001; J2704; J3010; J7030; Q9967; U0003; 45378; 74330

== ENCOUNTER 2020-07-23 00:58 | Observation (INO) | payer OTHER, MEDICARE ==
[~2020-07-23] VITALS: Ht 162.6 cm; Wt 54.6 kg
[~2020-07-23 00:58] MED LIST changes: -SODIUM CHLORIDE 0.9% 1000ML 1,000 ML IV ONE
[2020-07-23] MEDS ORDERED: ONDANSETRON HCL 4 MG/2 ML VIAL ONE (01:32)
[2020-07-23] MEDS ORDERED: MEPERIDINE-PF 25 MG/ML SYG ONE ×3 (01:33→14:39)
[2020-07-23 02:01] LABS: BASOPHILS % (AUTO) 0.1 % (0.0-5.0); EOSINOPHILS % (AUTO) 0.4 % (0.0-8.0); HEMATOCRIT 38.2 % (36-48); LYMPHOCYTES % (AUTO) 4.1 % (21.0-51.0); MEAN CORPUSCULAR HEMOGLOBIN 28.8 pg (27.0-33.0); MEAN CORPUSCULAR VOLUME 87.4 fL (79-99); MONOCYTES % (AUTO) 9.8 % (3.0-13.0); NEUTROPHILS % (AUTO) 85.1 % (40.0-77.0); PLATELET COUNT (AUTO) 284 K/uL (130-400); RED BLOOD CELL COUNT(AUTO) 4.37 MIL/uL (4.00-5.50); RED CELL DISTRIBUTION WIDTH 16.5 % (11.0-15.5); WHITE BLOOD COUNT (AUTO) 14.3 K/uL (4.8-10.8)
[2020-07-23 02:12] LABS: CREATININE 0.5 mg/dL (0.5-1.5); POTASSIUM 4.3 mmol/L (3.5-5.1)
[2020-07-23 02:16] LABS: ALBUMIN 2.8 g/dL (3.5-5.0); BILIRUBIN,TOTAL 0.5 mg/dL (0.2-1.0); TOTAL PROTEIN, SERUM 5.7 g/dL (6.0-8.3)
[2020-07-23] MEDS ORDERED: ZOSYN 3.375GM+NS 50ML 50 ML IV ONE ×2 (06:30→14:56)
[2020-07-23] MEDS ORDERED: ONDANSETRON HCL 4 MG/2 ML VIAL IVP PRN (06:45)
[2020-07-23 12:36] VITALS: BP 116/61
[2020-07-23] MEDS ORDERED: SODIUM CHLORIDE 0.9% 1000ML 1,000 ML IV ONE (14:57)
[2020-07-23] MEDS: SODIUM CHLORIDE 0.9% 1000ML 1,000 ML IV SCH (16:45)
[2020-07-23] MEDS: ZOSYN 3.375GM+NS 50ML 50 ML IV SCH (22:00)
[2020-07-24 00:20] VITALS: BP 131/63
[2020-07-24] MEDS: SODIUM CHLORIDE 0.9% 1000ML 1,000 ML IV SCH ×2 (00:36→00:55)
[2020-07-24] MEDS: MEPERIDINE-PF 25 MG/ML SYG IV PRN ×3 (00:53→15:24)
[2020-07-24] MEDS ORDERED: DIPH1TAB24 PO (01:09)
[2020-07-24] MEDS ORDERED: DICY20TA11 PO (01:09)
[2020-07-24] MEDS ORDERED: PANT40TA PO (01:16)
[2020-07-24 03:20] VITALS: BP 117/62
[2020-07-24] MEDS: ZOSYN 3.375GM+NS 50ML 50 ML IV SCH ×2 (06:12→15:33)
[2020-07-24 07:00] VITALS: BP 125/64
[2020-07-24 11:30] VITALS: BP_SYST 126; BP_SYST 132; BP_DIAS 100; BP_DIAS 62
[2020-07-24 16:00] VITALS: BP 157/75
== END 2020-07-24 17:55 | disposition home or self-care (01) ==
LOC: EDH 00:58 → INTOOBSV 06:20 → OBSVTOIN 06:20 → EDHIP 06:20 → 3BH 07-24 00:04
PROVIDERS: ADMIT Internal Medicine Hematology & Oncology; ATTEND Internal Medicine Hematology & Oncology
DX: G89.18 Other acute postprocedural pain (principal); R10.9 Unspecified abdominal pain; C18.9 Malignant neoplasm of colon, unspecified; M06.9 Rheumatoid arthritis, unspecified; D64.9 Anemia, unspecified; I25.118 Atherosclerotic heart disease of native coronary artery with other forms of angina pectoris; D72.829 Elevated white blood cell count, unspecified; J44.9 Chronic obstructive pulmonary disease, unspecified; Z90.49 Acquired absence of other specified parts of digestive tract; Z96.649 Presence of unspecified artificial hip joint; Z96.659 Presence of unspecified artificial knee joint; Z90.710 Acquired absence of both cervix and uterus; Z87.01 Personal history of pneumonia (recurrent); Z79.01 Long term (current) use of anticoagulants; Z79.899 Other long term (current) drug therapy; Z88.0 Allergy status to penicillin; Z88.3 Allergy status to other anti-infective agents; Z88.5 Allergy status to narcotic agent
CPT/HCPCS: 36415; 74150; 80053; 83690; 85025; 87507; 93005; 96361; 96365; 96366; 96375; 96376; 99285; G0378 ×36; J2175 ×6; J2405; J2543 ×4; J7030 ×2

== ENCOUNTER → 2020-08-27 | Outpatient (CLI) | payer OTHER, MEDICARE ==
[~2020-08-27] MED LIST changes: +DICY20TA11 PO; +DIPH1TAB24 PO; -ESOM40CA54 PO; -FOLI0.8T PO; +FOLI0.8T3 PO; -NTP TP; +PANT40TA PO; -RITU1010I INJ
== END | disposition home or self-care (01) ==
LOC: RAH 12:32
PROVIDERS: ATTEND Physical Medicine & Rehabilitation
DX: M19.011 Primary osteoarthritis, right shoulder (principal); M75.111 Incomplete rotator cuff tear or rupture of right shoulder, not specified as traumatic; M85.80 Other specified disorders of bone density and structure, unspecified site
CPT/HCPCS: 73030

== ENCOUNTER → 2020-12-29 | Outpatient (CLI) | payer OTHER, MEDICARE | END | disposition home or self-care (01) | LOC: DAH 10:00 → EDSTATUS 01-05 07:50 | PROVIDERS: ATTEND Internal Medicine Gastroenterology | DX: Z01.818 Encounter for other preprocedural examination (principal); R10.11 Right upper quadrant pain; Z20.822 Contact with and (suspected) exposure to COVID-19 | CPT/HCPCS: 87635; C9803 ==

== ENCOUNTER → 2021-06-29 | Outpatient (CLI) | payer OTHER, MEDICARE ==
[~2021-06-29] MED LIST changes: -DICY20TA11 PO; +DICY20TA3 PO
== END | disposition home or self-care (01) ==
LOC: SHCH 08:30
PROVIDERS: ATTEND Internal Medicine Cardiovascular Disease
DX: I87.2 Venous insufficiency (chronic) (peripheral) (principal)
CPT/HCPCS: 93970

== ENCOUNTER → 2022-07-26 | Outpatient (CLI) | payer OTHER, MEDICARE ==
[~2022-07-26] MED LIST changes: +BISA-151 PO; -BISA5TAB12 PO; -POTA10CA44 PO; +POTA10CA45 PO
== END | disposition home or self-care (01) ==
LOC: SHCH 11:36
PROVIDERS: ATTEND Internal Medicine Cardiovascular Disease
DX: I51.7 Cardiomegaly (principal); R06.00 Dyspnea, unspecified; R60.9 Edema, unspecified; R07.9 Chest pain, unspecified
CPT/HCPCS: 93306